=== PATIENT | male | born 1975 | race Caucasian/White ===

== ENCOUNTER 2017-03-06 12:25 | Emergency (ER) | payer OTHER ==
[2017-03-06 12:31] VITALS: BMI 36.5
[2017-03-06] MEDS ORDERED: SODIUM CHLORIDE 0.9% 1000 ML INFUS.BAG IV ONE (13:12)
[2017-03-06] MEDS ORDERED: ONDANSETRON 4 MG/2 ML VIAL IVPUSH ONE (13:13)
[2017-03-06] MEDS ORDERED: FAMOTIDINE 20 MG/50 ML IVPB 50 ML IVPB ONE ×2 (13:13→13:25)
--- NOTE | 2017-03-06 13:18 | PDOC ---
History of Present Illness - General Chief Complaint: Syncope/Near Syncope Stated Complaint: SYNCOPE Time Seen by Provider: 03/06/17 12:30 History Source: Patient Exam Limitations: No Limitations - History of Present Illness Initial Comments: 03/06/17 13:14 41 yo M with h/o gatric band, s/p readjustment 3 week ago, her todya with n/v x 2 days. and today with 2 episodes of syncope. pt states has been unable to tolerate PO last two days due to vomiting. has noted coffe ground emesis. today was at bus stop felt lightheaded. sat down and resolved sxs, but then shortly after had syncopal episode with breif loc after standing. . then has second espidoe few minutes later. no head trauma. no siezure like activity. no f /c no palpitations. no cp. has had similar syncopal epsiode one year ago. does have nausea now, no abd pain . last emesis this am. Past History - Past Medical History Allergies/Adverse Reactions: Allergies Allergy/AdvReac Type Severity Reaction Status Date / Time No Known Allergies Allergy Verified 03/06/17 12:27 Home Medications: Ambulatory Orders Sertraline HCl [Zoloft] 100 mg PO DAILY 03/06/17 Psychiatric Problems: Yes (ANXIETY) Other medical history: H/O FAINTING - Surgical History Abdominal Surgery: Yes (LAP BAND) - Psycho/Social/Smoking Cessation Hx Anxiety: No Suicidal Ideation: No Smoking History: Never smoked Information on smoking cessation initiated: No Hx Alcohol Use: No Drug/Substance Use Hx: No Review of Systems - Review of Systems Constitutional: No: Chills, Diaphoresis Respiratory: No: Orthopnea, Shortness of Breath ABD/GI: Yes: Nausea, Vomiting : No: Burning, Dysuria Musculoskeletal: No: Back Pain Integumentary: No: Bruising, Change in Color Neurological: No: Headache, Numbness Hematologic/Lymphatic: No: Anemia All Other Systems: Reviewed and Negative *Physical Exam - Vital Signs Last Vital Signs Temp Pulse Resp BP Pulse Ox 99.1 F 81 18 120/80 99 03/06/17 12:25 03/06/17 12:25 03/06/17 12:25 03/06/17 12:25 03/06/17 12:25 - Physical Exam General Appearance: Yes: Appropriately Dressed HEENT: negative: [place], Normal ENT Inspection Neck: positive: Trachea midline Respiratory/Chest: positive: Lungs Clear, Normal Breath Sounds. negative: Respiratory Distress Cardiovascular: positive: Regular Rhythm, Regular Rate, S1, S2. negative: Edema , JVD Gastrointestinal/Abdominal: positive: Normal Bowel Sounds, Soft. negative: Tender Musculoskeletal: positive: Normal Inspection. negative: CVA Tenderness Integumentary: positive: Normal Color, Dry, Warm Neurologic: positive: ios architect II-XII NML intact, Fully Oriented, Alert, Normal Mood/ Affect ED Treatment Course - LABORATORY CBC & Chemistry Diagram: 03/06/17 13:13 03/06/17 13:13 Medical Decision Making - Medical Decision Making 03/06/17 13:17 differential : slipped band, sbo, gastric strangulation. plan ct a/p fluids. ekg r/o electrlyte abnormality or anemia. ivf, e 03/06/17 16:22 pt labs unremarkable. hydrated with one liter NS, feeling improved. cT with dilation of stomach and distal esophagus just above the band. josie d/w DR Salinas [phone] pt surgeon. 03/06/17 16:34 d/w covering PA, can see pt in office tomorrow to loosen the band. recommend liquids this evening, and will see tomorrow. given copy of ct cd and written report in addition to labs. *DC/Admit/Observation/Transfer Diagnosis at time of Disposition: Syncope - Discharge Dispostion Disposition: HOME Condition at time of disposition: Improved Admit: No - Referrals Referrals: Ned Montoya MD [Primary Care Provider] - - Patient Instructions Printed Discharge Instructions: DI for Syncope in Adults (Fainting) Additional Instructions: you should take only liquids tonight , see your surgeon tomorrow for band readjustment. return for any difficulty breathing, chest pain or any concerns.
[2017-03-06 13:22] LABS: MCH 26.5 pg (25.7-33.7); MCHC 32.7 g/dl (32.0-35.9); MEAN PLT VOLUME 8.5 fl (7.5-11.1); PLATELET COUNT 326 K/MM3 (134-434); RDW 13.3 % (11.9-15.9)
[2017-03-06] MEDS ORDERED: ONDANSETRON 4 MG/2 ML VIAL ONE (13:25)
[2017-03-06 13:32] LABS: PLATELET ESTIMATE ADEQUATE (NORMAL)
[2017-03-06 13:34] LABS: BASOPHIL (MANUAL) 1 % (0-2.0)
[2017-03-06 13:40] LABS: ALBUMIN 4.6 g/dl (3.5-5.0); ALK PHOS 60 U/L (32-92); ANION GAP 11 (8-16); BILIRUBIN,TOTAL 0.5 mg/dl (0.2-1.0); CALCIUM 10.1 mg/dl (8.4-10.2); CO2 28 mmol/L (22-28); CREATININE 1.1 mg/dl (0.6-1.3); GLUCOSE,RANDOM 106 mg/dl (74-106); SGOT/AST 24 U/L (10-42); SGPT/ALT 16 U/L (10-40); TOT PROT 8.5 g/dl (6.4-8.3)
[2017-03-06 16:46] VITALS: BP 119/68; PULSE 78; TEMP 98.3
--- NOTE | 2017-03-06 18:21 | EKG ---
Test Reason : Blood Pressure : / mmHG Vent. Rate : 076 BPM Atrial Rate : 076 BPM P-R Int : 128 ms QRS Dur : 086 ms QT Int : 376 ms P-R-T Axes : 045 -05 029 degrees QTc Int : 423 ms NORMAL SINUS RHYTHM NORMAL ECG NO PREVIOUS ECGS AVAILABLE BASELINEV ARTIFACTS REPEAT EKG IF CLINICALLY INDICATED Confirmed by EDGAR MARTINEZ MD ([id number]) on 03/06/2017 6:21:06 PM Referred By: NISHI FISCHER Confirmed By:EDGAR MARTINEZ MD
== END 2017-03-06 16:45 | disposition home or self-care (01) ==
LOC: FER 12:25
PROC: 3E033GC Introduction of Other Therapeutic Substance into Peripheral Vein, Percutaneous Approach (ICD-10-PCS; principal; 2017-03-06)
PROC: 3E0337Z Introduction of Electrolytic and Water Balance Substance into Peripheral Vein, Percutaneous Approach (ICD-10-PCS; 2017-03-06)
DX: R55 Syncope and collapse (principal); F41.9 Anxiety disorder, unspecified
CPT/HCPCS: 36415; 74177-TC; 80053; 85025; 93005; 99285-25

== ENCOUNTER 2022-08-24 19:18 | Emergency (ER) | payer OTHER ==
[2022-08-24 19:49] VITALS: RESP 18; BMI 36.5
[2022-08-24 20:05] VITALS: BP 147/104; PULSE 73; TEMP 98.8
[2022-08-24 20:38] LABS: HEMOGLOBIN 14.8 G/dL (11.7-16.9); MCH 27.1 pg (25.7-33.7); MCHC 34.5 g/dl (32.0-35.9); MEAN CELL VOLUME 78.4 fl (80-96); MEAN PLT VOLUME 8.2 fl (7.5-11.1); PLATELET COUNT 238.9 10^3/uL (134-434); RBC 5.48 10^6/uL (4.00-5.60); RDW 16.1 % (11.9-15.9); WHITE BLOOD COUNT 11.6 10^3/uL (4.0-10.8)
[2022-08-24 21:00] LABS: BILIRUBIN,TOTAL 0.6 mg/dl (0.2-1); CALCIUM 9.2 mg/dl (8.5-10); TOT PROT 8.1 g/dl (6.4-8.2)
[2022-08-24] MEDS ORDERED: predniSONE 20 MG TABLET (UD) PO ONE ×2 (23:16→23:20)
[2022-08-24] MEDS ORDERED: predniSONE 20 MG TABLET (UD) ONE (23:24)
== END 2022-08-24 23:27 | disposition home or self-care (01) ==
LOC: FER 19:18
DX: M31.6 Other giant cell arteritis (principal)
CPT/HCPCS: 36415; 80053; 85027; 86140; 99283-25